=== PATIENT | female | born 1990 | race Two or more races ===

== ENCOUNTER 2024-05-19 07:40 | Emergency (ER) | payer SELFPAY ==
[~2024-05-19] VITALS: Ht 152.4 cm; Wt 70.0 kg
[2024-05-19 07:55] VITALS: BP 118/71; PULSE 108; RESP 18; TEMP 98.3; O2SAT 99
== END 2024-05-19 08:25 | disposition left against medical advice (07) ==
LOC: EMS 07:43
DX: M79.651 Pain in right thigh (principal); Z53.21 Procedure and treatment not carried out due to patient leaving prior to being seen by health care provider